=== PATIENT | male | born 1965 | race Caucasian/White ===

== ENCOUNTER → 2020-03-16 10:04 | Outpatient (BNVA) | payer OTHER, SELFPAY | PROVIDERS: Referring Provider Emergency Medicine Emergency Medical Services; Visit Provider Orthopaedic Surgery | DX: M54.5 Low back pain (principal); M51.37 Other intervertebral disc degeneration, lumbosacral region; M16.11 Unilateral primary osteoarthritis, right hip | CPT/HCPCS: 72114; 73502 ==